=== PATIENT | female | born 1995 | race African-American/Black ===

== ENCOUNTER 2018-01-02 13:51 | Emergency (ER) | payer BC ==
[~2018-01-02] VITALS: Ht 157.5 cm; Wt 56.7 kg
[2018-01-02 14:06] VITALS: BP_SYST 127
[2018-01-02 14:52] LABS: EOSINOPHILS # (AUTO) 0.1 K/uL (0.0-0.4); EOSINOPHILS % (AUTO) 1.2 % (0.0-4.0); HEMATOCRIT 44.1 % (36-48); HEMOGLOBIN 13.9 g/dL (12.0-16.0); LYMPHOCYTES # (AUTO) 1.4 K/uL (1.0-5.5); LYMPHOCYTES % (AUTO) 11.9 % (20.5-51.5); MEAN CORPUSCULAR HEMOGLOBIN 27 pg (27-31); MEAN CORPUSCULAR HGB CONC 32 % (32-36); MEAN CORPUSCULAR VOLUME 84 fL (79.0-98.0); MONOCYTES # (AUTO) 0.6 K/uL (0.0-1.0); MONOCYTES % (AUTO) 5.5 % (1.7-9.3); PLATELET COUNT (AUTO) 247 K/uL (130-430); RED BLOOD CELL COUNT(AUTO) 5.23 MIL/uL (4.2-6.2); RED CELL DISTRIBUTION WIDTH 11.6 % (9.0-15.0); WHITE BLOOD COUNT (AUTO) 11.7 K/uL (4.8-10.8)
[2018-01-02 14:53] LABS: BASOPHILS % (AUTO) 0.6 % (0.0-2.0); NEUTROPHILS % (AUTO) 80.8 % (40.0-70.0)
[2018-01-02 14:54] LABS: NEUTROPHILS # (AUTO) 9.6 K/uL (1.8-7.7)
[2018-01-02 15:00] LABS: CALCIUM 9.6 mg/dL (8.4-11.0); CREATININE 0.73 mg/dL (0.55-1.30); POTASSIUM 3.9 mmol/L (3.5-5.1)
[2018-01-02 15:05] LABS: TOTAL BILIRUBIN 0.6 mg/dL (0.0-1.0)
[2018-01-02 15:47] LABS: BILIRUBIN,URINE NEGATIVE (NEGATIVE); BLOOD, URINE 3+ (NEGATIVE); CLARITY/URINE CLOUDY (CLEAR); COLOR,URINE YELLOW (YELLOW); GLUCOSE,URINE NEGATIVE (NEGATIVE); KETONES,URINE NEGATIVE (NEGATIVE); LEUKOCYTE ESTERASE ,URINE 2+ (NEGATIVE); NITRITE, URINE NEGATIVE (NEGATIVE); PH,URINE >=9.0 (5.0-8.0); PROTEIN URINE TRACE (NEGATIVE); UROBILINOGEN,URINE 0.2 (0.2-1.0)
[2018-01-02 16:03] LABS: RBC,URINE 20-50 /HPF (0-3)
[2018-01-02 16:04] LABS: BACTERIA,URINE MANY /HPF (None Seen); URINE AMORPHOUS PHOSPHATES 2+ /HPF (None Seen); WBC,URINE 80-100 /HPF (0-3)
[2018-01-02 16:05] LABS: MUCUS,URINE None Seen /LPF (None Seen)
[2018-01-02 16:23] VITALS: BP_SYST 132
== END 2018-01-02 16:22 | disposition home or self-care (01) ==
LOC: SED 13:51
DX: N39.0 Urinary tract infection, site not specified (principal)
CPT/HCPCS: 36415; 80053; 81000-TC; 85025; 87086; 99283; 99284